=== PATIENT | female | born 1995 | race Caucasian/White ===

== ENCOUNTER 2018-07-25 12:00 | Outpatient (CLI) | payer MEDICAID ==
[~2018-07-25] VITALS: Ht 160 cm; Wt 57.7 kg
[2018-07-25 12:51] VITALS: BP 108/65
[2018-07-25 13:08] LABS: MICROSCOPIC INDICATED
[2018-07-25] MEDS ORDERED: PREN1TAB10 PO (13:43)
== END 2018-07-25 14:06 | disposition home or self-care (01) ==
LOC: LDOP 12:00
PROVIDERS: ATTEND Obstetrics & Gynecology
DX: O36.8130 Decreased fetal movements, third trimester, not applicable or unspecified (principal); Z3A.35 35 weeks gestation of pregnancy
CPT/HCPCS: 59025; 81001; 87086; 99211; G0463

== ENCOUNTER 2018-08-04 00:17 | Outpatient (CLI) | payer MEDICAID ==
[~2018-08-04] VITALS: Ht 160 cm; Wt 58.2 kg
[~2018-08-04 00:17] MED LIST: PREN1TAB10 PO
[2018-08-04 01:07] VITALS: BP 109/65
[2018-08-04 01:26] LABS: MICROSCOPIC INDICATED
[2018-08-04 01:32] LABS: AMPHETAMINE SCREEN, URINE Negative (Negative); BARBITURATE SCREEN, URINE Negative (Negative); BENZODIAZEPINE SCREEN, URINE Negative (Negative); CANNABINOID SCREEN, URINE Positive (Negative); COCAINE SCREEN, URINE Negative (Negative); METHADONE SCREEN, URINE Negative (Negative); OPIATE SCREEN, URINE Negative (Negative)
== END 2018-08-04 02:05 | disposition home or self-care (01) ==
LOC: LDOP 00:17
PROVIDERS: ATTEND Obstetrics & Gynecology
DX: O26.893 Other specified pregnancy related conditions, third trimester (principal); Z3A.37 37 weeks gestation of pregnancy; R10.9 Unspecified abdominal pain
CPT/HCPCS: 59025; 80307; 81001; 87086; 99211; G0463